=== PATIENT | male | born 1970 | race Caucasian/White ===

== ENCOUNTER 2017-04-24 19:18 | Emergency (ER) | payer SELFPAY ==
--- NOTE | 2017-04-24 19:33 | EDPHY ---
H & P Time Seen by Provider: 04/24/17 19:25 HPI/ROS: CHIEF COMPLAINT: Back pain HISTORY OF PRESENT ILLNESS: The patient is a 47-year-old male who is carbon during that presents to the emergency department with right lower back pain. Patient states he came home from work yesterday. He has felt case with slight "tinge" in his right lower back. He went to bed. He woke up at 1:00 a.m. with severe right lower back pain. It is worse with movement. It radiates from his right lower back to his buttock. He denies any extremity weakness or numbness. No incontinence of urine or stool. No fevers or chills. Patient has had a previous back injury on the left side. REVIEW OF SYSTEMS: My complete review of systems is negative except as mentioned in the HPI. Past Medical/Surgical History: Denies Social history: Patient denies drug use. Physical Exam: Vitals noted GENERAL: Well-appearing, in no acute distress, alert. HEENT: Eyes normal to inspection, normal pharynx, no signs of dehydration. RESPIRATORY: Clear to auscultation bilaterally, no rales, rhonchi or wheezing. CVS: Regular rate and rhythm, no rubs, murmurs, or gallops. ABDOMEN: Soft, nontender, nondistended, no organomegaly. No pulsatile mass. BACK: Normal to inspection, no CVA tenderness. No spinal tenderness. No SI joint tenderness palpation. Patient has negative leg raise bilaterally. SKIN: Normal color, no rash, warm, dry. No pallor. EXTREMITIES: No pedal edema, no calf tenderness, no Homans sign or cords, no joint swelling. NEURO/PSYCH: Alert and oriented x3, normal mood and affect, normal motor sensory exam. Patient is able to walk on his heels and toes. Allergies/Adverse Reactions: No Known Allergies Allergy (Unverified 04/24/17 19:30) Home Medications: Medication Instructions Recorded Cyclobenzaprine [Flexeril] 10 mg PO TID #15 tab 04/24/17 Hydrocodone/APAP 5/325 [[place] 1 - 2 tab PO Q4 #13 tab 04/24/17 5/325 (RX)] predniSONE 20 mg PO DAILY 4 Days tab 04/24/17 Medical Decision Making ED Course/Re-evaluation: In the emergency department I discussed possible etiologies with the patient. I answered all his questions. The patient will be given a course of steroid, Flexeril and [place]. I discussed this plan with the patient. I answered all his questions. He is given follow-up with Neurosurgery. He is given warnings prior to leaving. He will return with worsening symptoms. Differential Diagnosis: My differential includes but is not limited to musculoskeletal strain, back pain , disc herniation, kidney stone, AAA, dissection. I doubt cauda equina syndrome or neuro surgical emergency Departure - Departure Disposition: Home, Routine, Self-Care Clinical Impression: Low back pain Qualifiers: Chronicity: acute Back pain laterality: right Sciatica presence: without sciatica Qualified Code(s): M54.5 - Low back pain Condition: Good Instructions: Acute Low Back Pain (ED) Referrals: Dirk Reynolds MD [Medical Doctor] - 5-7 days, call for appt. Prescriptions: Cyclobenzaprine [Flexeril] 10 mg PO TID #15 tab Hydrocodone/APAP 5/325 [[place] 5/325 (RX)] 1 - 2 tab PO Q4 #13 tab predniSONE 20 mg PO DAILY 4 Days tab
[2017-04-24 19:34] VITALS: BP 130/86; PULSE 79; RESP 16; TEMP 97.7; O2SAT 95
[2017-04-24] MEDS ORDERED: HYDROCODONE/APAP 5/325 TAB PO ONE (19:34)
[2017-04-24] MEDS ORDERED: CYCLOBENZAPRINE 10 MG TAB PO ONE (19:34)
[2017-04-24] MEDS ORDERED: predniSONE 20 MG TAB PO ONE (19:34)
== END 2017-04-24 19:50 | disposition home or self-care (01) ==
LOC: CED 19:18
DX: M54.5 Low back pain (principal)
CPT/HCPCS: J7512